=== PATIENT | female | born 1970 | race Caucasian/White ===

== ENCOUNTER → 2019-07-27 14:32 | Outpatient (BNVA) | payer MEDICARE, SELFPAY | PROVIDERS: Family Provider Family Medicine; PCP Student in an Organized Health Care Education/Training Program; Visit Provider Anesthesiology | DX: G62.9 Polyneuropathy, unspecified (principal); M79.672 Pain in left foot; G89.29 Other chronic pain; M47.27 Other spondylosis with radiculopathy, lumbosacral region; M47.817 Spondylosis without myelopathy or radiculopathy, lumbosacral region; M53.3 Sacrococcygeal disorders, not elsewhere classified; Z79.891 Long term (current) use of opiate analgesic | CPT/HCPCS: 99214 ==

== ENCOUNTER → 2019-09-19 13:52 | Outpatient (BNVA) | payer MEDICARE, SELFPAY | PROVIDERS: Family Provider Family Medicine; PCP Student in an Organized Health Care Education/Training Program; Visit Provider Anesthesiology | DX: Z76.89 Persons encountering health services in other specified circumstances (principal) | CPT/HCPCS: 99213 ==

== ENCOUNTER → 2019-10-02 08:44 | Outpatient (BNVA) | payer MEDICARE, SELFPAY | PROVIDERS: Family Provider Family Medicine; PCP Student in an Organized Health Care Education/Training Program; Visit Provider Nurse Practitioner Psychiatric/Mental Health | DX: F31.5 Bipolar disorder, current episode depressed, severe, with psychotic features (principal); F43.12 Post-traumatic stress disorder, chronic | CPT/HCPCS: 99214 ==

== ENCOUNTER → 2019-11-28 08:21 | Outpatient (BNVA) | payer MEDICARE, SELFPAY | PROVIDERS: Family Provider Family Medicine; PCP Family Medicine; Visit Provider Nurse Practitioner Psychiatric/Mental Health | DX: F31.5 Bipolar disorder, current episode depressed, severe, with psychotic features (principal); F43.12 Post-traumatic stress disorder, chronic; F17.210 Nicotine dependence, cigarettes, uncomplicated; F33.2 Major depressive disorder, recurrent severe without psychotic features | CPT/HCPCS: 99214 ==

== ENCOUNTER → 2019-12-07 13:21 | Outpatient (BNVA) | payer MEDICARE, SELFPAY | PROVIDERS: Family Provider Family Medicine; PCP Family Medicine; Visit Provider Anesthesiology | DX: G89.29 Other chronic pain (principal); M79.604 Pain in right leg; M79.605 Pain in left leg; M47.817 Spondylosis without myelopathy or radiculopathy, lumbosacral region; M47.27 Other spondylosis with radiculopathy, lumbosacral region; M53.3 Sacrococcygeal disorders, not elsewhere classified; M79.672 Pain in left foot; Z79.891 Long term (current) use of opiate analgesic | CPT/HCPCS: 99214 ==

== ENCOUNTER → 2020-02-15 13:13 | Outpatient (BNVA) | payer MEDICARE, SELFPAY | PROVIDERS: Family Provider Family Medicine; PCP Family Medicine; Visit Provider Anesthesiology | DX: M79.604 Pain in right leg (principal); M79.605 Pain in left leg; M79.672 Pain in left foot; M79.671 Pain in right foot; M47.27 Other spondylosis with radiculopathy, lumbosacral region; M47.817 Spondylosis without myelopathy or radiculopathy, lumbosacral region; E11.42 Type 2 diabetes mellitus with diabetic polyneuropathy; Z79.891 Long term (current) use of opiate analgesic | CPT/HCPCS: 99214 ==

== ENCOUNTER → 2020-02-27 08:24 | Outpatient (BNVA) | payer MEDICARE, SELFPAY | PROVIDERS: Family Provider Family Medicine; PCP Family Medicine; Visit Provider Nurse Practitioner Psychiatric/Mental Health | DX: F31.5 Bipolar disorder, current episode depressed, severe, with psychotic features (principal); F43.12 Post-traumatic stress disorder, chronic | CPT/HCPCS: 99214 ==

== ENCOUNTER → 2020-04-16 13:30 | Outpatient (BNVA) | payer MEDICARE, SELFPAY | PROVIDERS: Family Provider Family Medicine; PCP Family Medicine; Visit Provider Anesthesiology | DX: G89.29 Other chronic pain (principal); M47.27 Other spondylosis with radiculopathy, lumbosacral region; M47.817 Spondylosis without myelopathy or radiculopathy, lumbosacral region; M53.3 Sacrococcygeal disorders, not elsewhere classified; E11.42 Type 2 diabetes mellitus with diabetic polyneuropathy; Z99.3 Dependence on wheelchair; Z79.891 Long term (current) use of opiate analgesic | CPT/HCPCS: 99213; 99214 ==

== ENCOUNTER → 2020-04-24 08:49 | Outpatient (BNVA) | payer MEDICARE, SELFPAY | PROVIDERS: Family Provider Family Medicine; PCP Family Medicine; Visit Provider Anesthesiology | DX: G89.29 Other chronic pain (principal); M54.5 Low back pain; M53.3 Sacrococcygeal disorders, not elsewhere classified; M47.27 Other spondylosis with radiculopathy, lumbosacral region | CPT/HCPCS: 62323 ==

== ENCOUNTER → 2020-05-07 07:34 | Outpatient (BNVA) | payer MEDICARE, SELFPAY | PROVIDERS: Family Provider Family Medicine; PCP Family Medicine; Visit Provider Nurse Practitioner Psychiatric/Mental Health | DX: F31.5 Bipolar disorder, current episode depressed, severe, with psychotic features (principal); F43.12 Post-traumatic stress disorder, chronic | CPT/HCPCS: 99214 ==

== ENCOUNTER → 2020-05-28 08:12 | Outpatient (BNVA) | payer MEDICARE, SELFPAY | PROVIDERS: Family Provider Family Medicine; PCP Family Medicine; Visit Provider Nurse Practitioner Psychiatric/Mental Health | DX: F31.64 Bipolar disorder, current episode mixed, severe, with psychotic features (principal); F43.12 Post-traumatic stress disorder, chronic; F41.1 Generalized anxiety disorder | CPT/HCPCS: 99214 ==

== ENCOUNTER → 2020-06-10 13:27 | Outpatient (BNVA) | payer MEDICARE, SELFPAY | PROVIDERS: Family Provider Family Medicine; PCP Family Medicine; Visit Provider Nurse Practitioner | DX: G89.29 Other chronic pain (principal); M47.27 Other spondylosis with radiculopathy, lumbosacral region; M47.817 Spondylosis without myelopathy or radiculopathy, lumbosacral region; M79.672 Pain in left foot; G62.9 Polyneuropathy, unspecified; Z79.891 Long term (current) use of opiate analgesic | CPT/HCPCS: 99214 ==

== ENCOUNTER → 2020-06-11 08:20 | Outpatient (BNVA) | payer MEDICARE, SELFPAY | PROVIDERS: Family Provider Family Medicine; PCP Family Medicine; Visit Provider Nurse Practitioner Psychiatric/Mental Health | DX: F31.64 Bipolar disorder, current episode mixed, severe, with psychotic features (principal); F43.12 Post-traumatic stress disorder, chronic; F41.1 Generalized anxiety disorder | CPT/HCPCS: 99214 ==

== ENCOUNTER → 2020-07-11 13:20 | Outpatient (BNVA) | payer MEDICARE, SELFPAY | PROVIDERS: Family Provider Family Medicine; PCP Family Medicine; Visit Provider Nurse Practitioner | DX: G89.29 Other chronic pain (principal); M47.27 Other spondylosis with radiculopathy, lumbosacral region; M47.817 Spondylosis without myelopathy or radiculopathy, lumbosacral region; M53.3 Sacrococcygeal disorders, not elsewhere classified; M79.672 Pain in left foot; Z79.891 Long term (current) use of opiate analgesic | CPT/HCPCS: 99213; 99214 ==

== ENCOUNTER → 2020-08-06 13:28 | Outpatient (BNVA) | payer MEDICARE, SELFPAY | PROVIDERS: Family Provider Family Medicine; PCP Family Medicine; Visit Provider Nurse Practitioner Psychiatric/Mental Health | DX: F31.64 Bipolar disorder, current episode mixed, severe, with psychotic features (principal); F43.12 Post-traumatic stress disorder, chronic; F41.1 Generalized anxiety disorder | CPT/HCPCS: 99214 ==

== ENCOUNTER → 2020-08-28 14:26 | Outpatient (BNVA) | payer MEDICARE, SELFPAY | PROVIDERS: Family Provider Family Medicine; PCP Family Medicine; Visit Provider Nurse Practitioner Psychiatric/Mental Health | DX: F43.12 Post-traumatic stress disorder, chronic (principal); F41.1 Generalized anxiety disorder; F31.64 Bipolar disorder, current episode mixed, severe, with psychotic features; F03.90 Unspecified dementia, unspecified severity, without behavioral disturbance, psychotic disturbance, mood disturbance, and anxiety | CPT/HCPCS: 99214 ==

== ENCOUNTER → 2020-10-30 08:41 | Outpatient (BNVA) | payer MEDICARE, SELFPAY | PROVIDERS: Family Provider Family Medicine; PCP Family Medicine; Visit Provider Nurse Practitioner Psychiatric/Mental Health | DX: F31.64 Bipolar disorder, current episode mixed, severe, with psychotic features (principal); F43.12 Post-traumatic stress disorder, chronic; F41.1 Generalized anxiety disorder | CPT/HCPCS: 99214 ==

== ENCOUNTER → 2021-02-04 13:58 | Outpatient (BNVA) | payer MEDICARE, SELFPAY | PROVIDERS: Family Provider Family Medicine; PCP Family Medicine; Referring Provider Nurse Practitioner Psychiatric/Mental Health; Visit Provider Specialist | DX: G31.84 Mild cognitive impairment of uncertain or unknown etiology (principal); G43.711 Chronic migraine without aura, intractable, with status migrainosus; Z79.891 Long term (current) use of opiate analgesic; Z87.891 Personal history of nicotine dependence | CPT/HCPCS: 96116; 99205 ==

== ENCOUNTER → 2021-02-12 07:31 | Outpatient (BNVA) | payer MEDICARE, SELFPAY | PROVIDERS: Family Provider Family Medicine; PCP Family Medicine; Visit Provider Nurse Practitioner Psychiatric/Mental Health | DX: F31.64 Bipolar disorder, current episode mixed, severe, with psychotic features (principal); F43.12 Post-traumatic stress disorder, chronic; F41.1 Generalized anxiety disorder; Z79.899 Other long term (current) drug therapy | CPT/HCPCS: 99215 ==

== ENCOUNTER → 2021-03-09 07:29 | Outpatient (BNVA) | payer MEDICARE, SELFPAY | PROVIDERS: Family Provider Family Medicine; PCP Family Medicine; Visit Provider Nurse Practitioner Psychiatric/Mental Health | DX: F31.64 Bipolar disorder, current episode mixed, severe, with psychotic features (principal); F43.12 Post-traumatic stress disorder, chronic; F41.1 Generalized anxiety disorder | CPT/HCPCS: 99214 ==

== ENCOUNTER 2021-03-19 13:37 | Outpatient (CLI) | payer MEDICARE, SELFPAY ==
--- NOTE | 2021-03-19 13:45 | XR_ITS ---
WS: [id number] PA and lateral chest, 03/19/2021 Clinical Data: Shortness of breath Comparison: PA and lateral chest, 06/24/2015. Findings: No nodules, masses or effusions are seen. There are chronic interstitial changes throughout both lungs especially in the lower lobes and right upper lobe. The heart is normal. The aortic arch and descending thoracic aorta show calcification and tortuosity. There is a dextroscoliosis. No pneum onia or pneumothorax is seen. There are clips in the upper abdomen from a cholecystectomy. XR/XR chest 2V* [id number] Impression: 1. Bilateral chronic interstitial change in both lungs. 2. Atherosclerosis.
== END 2021-03-19 13:38 | disposition home or self-care (01) ==
LOC: RAD 13:42
PROVIDERS: PCP Family Medicine; Visit Provider Internal Medicine Critical Care Medicine
DX: R06.02 Shortness of breath (principal); I70.90 Unspecified atherosclerosis
CPT/HCPCS: 71046

== ENCOUNTER → 2021-03-30 08:32 | Outpatient (BNVA) | payer MEDICARE, SELFPAY | PROVIDERS: PCP Family Medicine; Visit Provider Nurse Practitioner Psychiatric/Mental Health | DX: F31.64 Bipolar disorder, current episode mixed, severe, with psychotic features (principal); F43.12 Post-traumatic stress disorder, chronic; F41.1 Generalized anxiety disorder | CPT/HCPCS: 99214 ==

== ENCOUNTER 2021-04-01 12:58 | Outpatient (CLI) | payer MEDICARE, SELFPAY ==
--- NOTE | 2021-04-01 13:15 | CT_ITS ---
WS: [id number] CT scan of the chest without IV contrast, additional two-dimensional coronal and sagittal reconstruct ion was performed. Additional axial supine inspiration and expiration imaging was performed. Prone im aging in the axial projection was done. 04/01/2021 Clinical Data: Pulmonary Nodule Comparison: CT chest, 10/01/2015. DLP: 980.[address] scans at [facility] use at least one of these dose optimization techniques: automated e xposure control; mA and/or kV adjustment per patient size (includes targeted exams where dose is matc hed to clinical indication); or iterative reconstruction. Findings: The upper lobes show bullous emphysema and chronic atelectatic changes especially in the right upper lobe. The lower lobes show atelectatic changes and there is a 1.7 cm pleural-based right lower lobe d ensity seen best on axial image 32 of 56. This density could be atelectasis or a pleural-based mass. With inspiration and expiration there is very little change in the size or excursion of the lungs. Th is indicates extensive air trapping. No effusions are seen. The heart size is normal with no pericardial effusion. There is coronary arter y calcification. The pulmonary arterial system and thoracic aorta demonstrate no dilatations. There i s minimal calcification of the wall of the thoracic aorta. There is no axillary or significant medias tinal adenopathy. There is calcified subcarinal adenopathy. The upper abdomen demonstrates clips in the gallbladder fossa from a cholecystectomy. CT/CT chest wo con [id number] Impression: 1. Severe bullous emphysema especially in the upper lobes. 2. Atelectatic changes throughout the lungs most notably in the right upper lob e. 3. Pleural-based density in the right lower lobe seen best on image 32/56 and r ecommend repeat CT chest in 3 months. 4. Inspiration and expiration CT scans demonstrate considerable air trapping wi th little change in size of the lungs.
== END 2021-04-01 12:59 | disposition home or self-care (01) ==
PROVIDERS: PCP Family Medicine; Visit Provider Internal Medicine Critical Care Medicine
DX: R91.1 Solitary pulmonary nodule (principal); J43.8 Other emphysema
CPT/HCPCS: 71250

== ENCOUNTER → 2021-05-04 15:10 | Outpatient (BNVA) | payer MEDICARE, SELFPAY | PROVIDERS: PCP Family Medicine; Visit Provider Specialist | DX: G43.711 Chronic migraine without aura, intractable, with status migrainosus (principal); G31.84 Mild cognitive impairment of uncertain or unknown etiology; Z87.891 Personal history of nicotine dependence | CPT/HCPCS: 96116; 99214 ==

== ENCOUNTER 2021-05-19 06:00 | Outpatient (RCR) | payer MEDICARE, SELFPAY | END 2021-05-26 23:59 | disposition home or self-care (01) | LOC: SPT 06:00 | PROVIDERS: PCP Family Medicine; Referring Provider Family Medicine; Visit Provider Family Medicine | DX: M25.512 Pain in left shoulder (principal); G89.29 Other chronic pain | CPT/HCPCS: 97110; 97162 ==

== ENCOUNTER → 2021-05-25 07:43 | Outpatient (BNVA) | payer MEDICARE, SELFPAY | PROVIDERS: PCP Family Medicine; Visit Provider Nurse Practitioner Psychiatric/Mental Health | DX: F31.64 Bipolar disorder, current episode mixed, severe, with psychotic features (principal); F43.12 Post-traumatic stress disorder, chronic; F41.1 Generalized anxiety disorder; G31.84 Mild cognitive impairment of uncertain or unknown etiology | CPT/HCPCS: 99214 ==

== ENCOUNTER 2021-05-27 06:00 | Outpatient (RCR) | payer MEDICARE, SELFPAY | END 2021-06-26 23:59 | disposition home or self-care (01) | LOC: SPT 06:00 | PROVIDERS: PCP Family Medicine; Visit Provider Family Medicine | DX: M25.512 Pain in left shoulder (principal); G89.29 Other chronic pain | CPT/HCPCS: 97110 ==

== ENCOUNTER 2021-06-22 15:30 | Emergency (ER) | payer MEDICARE, SELFPAY ==
[2021-06-22 15:38] VITALS: BP 125/73; PULSE 97; RESP 22; TEMP 37.5; O2SAT 92; BMI 25.7
[2021-06-22 16:06] VITALS: BP 125/73; PULSE 97; RESP 22; TEMP 37.5; O2SAT 92
[2021-06-22 16:18] LABS: Basophils # 0.1 10^3/uL (0.0-0.1); Basophils % 0.8 %; Eosinophils # 0.1 10^3/uL (0.0-0.8); Eosinophils % 1.2 %; Hematocrit 49.3 % (37.0-47.0); Hemoglobin 16.1 g/dL (11.5-15.3); Lymphocytes # 1.9 10^3/uL (0.8-4.8); Lymphocytes % 28.5 %; Mean Corpuscular HGB Conc 32.7 g/dL (30.0-36.0); Mean Corpuscular Hemoglobin 26.7 pg (28.0-34.0); Mean Corpuscular Volume 81.9 fl (81-99); Monocytes # 0.4 10^3/uL (0.2-0.9); Monocytes % 5.6 %; Neutrophils # 4.23 10^3/uL (1.8-7.7); Neutrophils % 63.6 %; Nucleated Red Blood Cells % 0 %; Platelet Count 201 10^3/cmm (130-400); Red Blood Count 6.02 10^6/uL (4.1-5.3); Red Cell Distribution Width 13.2 % (12.1-15.1); White Blood Count 6.6 10^3/uL (4.0-10.0)
[2021-06-22 16:40] LABS: Alanine Aminotransferase 9 U/L (0-33); Alkaline Phosphatase 81 IU/L (35-105); Anion Gap 14.7 (5-19); Aspartate Amino Transferase 10 U/L (0-32); Blood Urea Nitrogen 14 mg/dL (6-20); Calcium 8.6 mg/dL (8.5-10.5); Carbon Dioxide 26 mmol/L (22-29); Chloride 98 mmol/L (98-107); Globulin 3.3 g/dL (1.3-4.6); Glucose 484 mg/dL (65-115); Osmolality Calculated 300 mOsm/kg (285-295); Potassium 4.7 mmol/L (3.5-5.1); Sodium 134 mmol/L (136-145); Total Bilirubin 0.7 mg/dL (0.15-1.2); Total Protein 7.3 g/dL (6.6-8.7)
[2021-06-22 16:42] LABS: Acetaminophen < 5.0 ug/mL (10-30); Alcohol Level < 10 mg/dL (0-10); Salicylate < 0.3 mg/dL (3-10)
--- NOTE | 2021-06-22 17:05 | ED.C_ITS ---
HPI - Psych General: Chief Complaint: Psychiatric Symptoms Stated Complaint: MHE Time Seen by Provider: 06/22/21 15:52 History of Present Illness: HPI Narrative: 51-year-old female presents to the emergency room she is tearful on presentation. She denies any suicidal or homicidal behavior. She does admit in the past she has acted out in an attempt to get attention by threatening suicide this was several weeks ago she never advanced any lethality on that, and. She states she was just trying to get her to pay attention to her. She comes in today because she says she feels like she is going crazy . She relates a couple of instances where everyone agrees upon the facts of what it happened including her is at the bedside however they argue about the interpretation and how to deal with the problem. She interprets this as being told that she is wrong and is going crazy. She denies any suicidal homicidal ideation she denies any auditory or visual hallucinations. She is seeing a counselor at a local private office and has been pursuing some counseling with her through the christianity although she is frustrated because she feels like he does not participate and do what he is supposed to. complaint: feels depressed Onset (ago): minute(s) Duration: intermittent, changing over time and getting worse Relieving factors: none Exacerbating factors: none Associated symptoms: Deny auditory hallucinations, visual hallucinations, d elusions, depression, homicidal ideation, suicidal ideation or racing thoughts Treatments prior to arrival: none Review of Systems Const: Denies: fever(s), chills, body aches, change in appetite, fatigue or malaise ENMT: Denies: throat pain, ear or mastoid pain, nasal discharge or nasal congestion Card: Denies: chest pain, edema, dyspnea on exertion or orthopnea Resp: Denies: dyspnea, productive cough or non-productive cough GI: Denies: abdominal pain, nausea, vomiting, hematemesis, coffee ground emesis, diarrhea, constipation, bloating, hematochezia or melena : Denies: flank pain, difficulty voiding, dysuria, urinary frequency or urinary urgency Skin/Breast: Denies: rash or pruritus Psych: Denies: depression, visual hallucinations, auditory hallucinations, suicidal ideation or homicidal ideation PFS ED PFSH: Medical History Acute bilateral low back pain Apnea, sleep Bipolar I, most recent episode mixed, severe with psychotic behavior Chronic pain in left foot Chronic post-traumatic stress disorder Essential (primary) hypertension Facet joint disease of lumbosacral region Generalized anxiety disorder 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 Migraine, unspecified, not intractable, without status migrainosus Neuropathy Other spondylosis with radiculopathy, lumbosacral region Psychiatric care Type 2 diabetes mellitus with diabetic polyneuropathy Surgical History History of bilateral tubal ligation History of laparoscopic appendectomy Hx of cholecystectomy Hx of hysterectomy, total Family History Father CAD (coronary artery disease) Lung disease Bipolar 1 disorder Thyroid disorder Mother Diabetes Lung disease Social History Smoking and tobacco status: never smoked (1 pack a day) Quit status (tobacco): has quit using tobacco Year quit tobacco: 2011 - 2PPD x 40 Years Former quit date comment: Used non-minerva vape from 2011 - 2019 Alcohol intake: never Lives independently: Yes Household members: spouse Marital status: Current occupational status: disabled History of recent travel: No Current gender identity: Female Physical Exam Const: COMMON NORMALS: no acute distress GENERAL APPEARANCE: cooperative and comfortable ORIENTATION/CONSCIOUSNESS: Yes awake, Yes oriented to person, Yes oriented to place and Yes oriented to time HENMT: COMMON NORMALS: normocephalic, atraumatic and hearing grossly normal bilaterally HEAD & SCALP: normocephalic and atraumatic Neck/C-Spine: COMMON NORMALS: no JVD Resp: COMMON NORMALS: normal respiratory effort, No retractions, No use of accessory muscles and clear to auscultation bilaterally AUSCULTATION: clear to auscultation bilaterally Cardio: COMMON NORMALS: no JVD, regular rate, regular rhythm and No murmurs present (Cardio) RATE: regular rate RHYTHM: regular rhythm GI: COMMON NORMALS: Soft to palpation and No hepatosplenomegaly present AUSCULTATION: Yes normoactive bowel sounds PALPATION: Yes Soft to palpation, No Tenderness to palpation present (GI), No Guarding due to palpation present (GI) and Yes No hepatosplenomegaly present Extremity: COMMON NORMALS: normal to inspection, capillary refill normal, no clubbing, cyanosis or edema, no calf tenderness and no pedal edema Neuro: SENSORIUM/ORIENTATION: Yes oriented to person, Yes oriented to place and Yes oriented to time Psych: THOUGHT CONTENT: No delusions Skin: COMMON NORMALS: no rashes or lesions noted GENERAL SKIN EXAM: no rashes or lesions noted Course Vital Signs: Vital signs: Vital Signs Temperature 99.5 F 06/22/21 16:06 Pulse Rate 97 06/22/21 16:06 Respiratory Rate 22 H 06/22/21 16:06 Blood Pressure 125/73 06/22/21 16:06 Pulse Oximetry 92 06/22/21 16:06 MDM - Psych MDM Narrative: Medical decision making narrative: Long discussion with the patient and her . Essentially she has an adjustment disorder with some depression. At this point she is not acutely psychotic she does not have any suicidal homicidal complaints. She does have the ability to remove herself from the situation her is actually at the bedside and is willing to assist her and then as he is can bring her to a family member's home just so they can have some time apart. Recommended she continue the counseling. She repeatedly denies any suicidal or homicidal ideation. Lab Data: Labs: Lab Results 06/22/21 06/22/21 16:04 16:04 WBC 6.6 10^3/uL 10^3/ uL (4.0-10.0) RBC 6.02 10^6/uL H 10 ^6/uL (4.1-5.3) Hgb 16.1 g/dL H g/dL (11.5-15.3) Hct 49.3 % H % (37.0-47.0) MCV 81.9 fl fl (81-99) MCH 26.7 pg L pg (28.0-34.0) MCHC 32.7 g/dL g/dL (30.0-36.0) RDW 13.2 % % (12.1-15.1) Plt Count 201 10^3/cmm 10^3 /cmm (130-400) MPV 11.0 fL H fL (7.4-10.4) Neut % (Auto) 63.6 % % Lymph % (Auto) 28.5 % % [place] % (Auto) 5.6 % % Eos % (Auto) 1.2 % % Baso % (Auto) 0.8 % % Neut # (Auto) 4.23 10^3/uL 10^3 /uL (1.8-7.7) Lymph # (Auto) 1.9 10^3/uL 10^3/ uL (0.8-4.8) [place] # (Auto) 0.4 10^3/uL 10^3/ uL (0.2-0.9) Eos # (Auto) 0.1 10^3/uL 10^3/ uL (0.0-0.8) Baso # (Auto) 0.1 10^3/uL 10^3/ uL (0.0-0.1) Nucleated RBC % (a uto) 0 % % Nucleated RBCs # 0.0 /100WBC /100W BC Sodium 134 mmol/L L mmol /L (136-145) Potassium 4.7 mmol/L mmol/L (3.5-5.1) Chloride 98 mmol/L mmol/L (98-107) Carbon Dioxide 26 mmol/L mmol/L (22-29) Anion Gap 14.7 (5-19) BUN 14 mg/dL mg/dL (6-20) Creatinine 0.8 mg/dL mg/dL (0.5-0.9) GFR Calculation 75.0 mL/min L mL/ min (90-130) Glucose 484 mg/dL H mg/dL (65-115) Calculated Osmolal ity 300 mOsm/kg H mOs m/kg (285-295) Calcium 8.6 mg/dL mg/dL (8.5-10.5) Total Bilirubin 0.7 mg/dL mg/dL (0.15-1.2) AST 10 U/L U/L (0-32) ALT 9 U/L U/L (0-33) Alkaline Phosphata se 81 IU/L IU/L (35-105) Total Protein 7.3 g/dL g/dL (6.6-8.7) Albumin 4.0 g/dL g/dL (3.5-5.2) Globulin 3.3 g/dL g/dL (1.3-4.6) Salicylates < 0.3 mg/dL L mg/ dL (3-10) Acetaminophen < 5.0 ug/mL L ug/ mL (10-30) Ethyl Alcohol < 10 mg/dL mg/dL (0-10) Discharge Plan Discharge Patient Disposition: Home Clinical Impression: Adjustment disorder Condition: Stable Prescriptions: No Action cholecalciferol (vitamin D3) 50 mcg (2,000 unit) capsule 50 mcg PO DAILY RF: 0 alpha lipoic acid 200 mg capsule 200 mg PO TID RF: 0 vitamin B complex [B Complex-Vitamin B12] Tablet 1 tab PO DAILY RF: 0 sumatriptan succinate 25 mg tablet See Rx Instructions PO .COMPLEX RF: 0 oxycodone 20 mg tablet 20 mg PO Q6H PRN (Reason: pain) RF: 0 oxycodone 20 mg tablet 20 mg PO Q6H PRN (Reason: pain) RF: 0 omeprazole 20 mg tablet,delayed release (DR/EC) 20 mg PO BID Qty: 60 RF: 3 pregabalin [Lyrica] 300 mg capsule 300 mg PO QDAY 30 Days Qty: 30 RF: 1 promethazine 12.5 mg tablet 12.5 mg PO Q6H PRN (Reason: nausea and vomiting) Qty: 120 RF: 2 quetiapine [Seroquel XR] 300 mg tablet extended release 24 hr 300 mg PO DAILY Qty: 30 RF: 3 melatonin 3 mg tablet 3 mg PO DIRECTED PRN (Reason: sleep) Qty: 30 RF: 3 [place] 6 mg tablet 6 mg PO BID Qty: 60 RF: 4 diazepam [Valium] 5 mg tablet 5 mg PO DIRECTED PRN (Reason: anxiety) Qty: 60 RF: 2 albuterol sulfate 5 mg/mL solution for nebulization 5 mg INHALATION TID PRNRF: 0 pravastatin 40 mg tablet 40 mg PO .Q HS RF: 0 polyethylene glycol 3350 [Miralax] 17 gram/dose powder 17 gm PO QDAY PRN (Reason: constipation) RF: 0 metoprolol tartrate 100 mg tablet 100 mg PO QDAY RF: 0 albuterol sulfate inhalation RF: 0 CBD OILS as directed TID RF: 0 Tresiba FlexTouch U-100 100 unit/mL (3 mL) insulin pen 30 unit SUBCUT .QHS RF: 0 ondansetron 4 mg tablet,disintegrating 4 mg PO Q8H RF: 0 Ajovy Autoinjector 225 mg/1.5 mL auto-injector SUBCUT RF: 0 galantamine 4 mg tablet 4 mg PO BID Qty: 60 RF: 3 diclofenac sodium-menthol 1.5-10 % combo pack topical QID RF: 0 mjdiwxsbuux-hsmfhriou-fodaqlrl [Trelegy Ellipta] 100-62.5-25 mcg blister with device See Rx Instructions .ROUTE .COMPLEX Qty: 60 RF: 6 dronabinol 10 mg capsule 10 mg PO DAILY 30 Days Qty: 30 RF: 3 dronabinol 10 mg capsule 10 mg PO BID 30 Days Qty: 60 RF: 1 Ajovy Autoinjector 225 mg/1.5 mL auto-injector See Rx Instructions .ROUTE .COMPLEX Qty: 1.5 RF: 2 Discharge Orders: Discharge ED (Routine); Ordered 06/22/21 Ordered By: Shan Benavides Referrals: Uzma Oleary DO [Primary Care Provider] - Patient Instructions: Opioid Safety Coding Level of Care Code ED Strap Cutting Machine Operator for Prema Magana
== END 2021-06-22 17:24 | disposition home or self-care (01) ==
PROVIDERS: Physician Assistant; Emergency Provider Family Medicine; PCP Family Medicine
DX: F43.20 Adjustment disorder, unspecified (principal); Z79.4 Long term (current) use of insulin; I10 Essential (primary) hypertension; E11.42 Type 2 diabetes mellitus with diabetic polyneuropathy; Z87.891 Personal history of nicotine dependence
CPT/HCPCS: 80053; 80307; 85025; 99283

== ENCOUNTER → 2021-06-30 07:45 | Outpatient (BNVA) | payer MEDICARE, SELFPAY | PROVIDERS: PCP Family Medicine; Visit Provider Nurse Practitioner Psychiatric/Mental Health | DX: F31.64 Bipolar disorder, current episode mixed, severe, with psychotic features (principal); F43.12 Post-traumatic stress disorder, chronic; F41.1 Generalized anxiety disorder; G31.84 Mild cognitive impairment of uncertain or unknown etiology | CPT/HCPCS: 99214 ==

== ENCOUNTER → 2021-07-23 08:11 | Outpatient (BNVA) | payer MEDICARE, SELFPAY | PROVIDERS: PCP Family Medicine; Visit Provider Nurse Practitioner Psychiatric/Mental Health | DX: F31.64 Bipolar disorder, current episode mixed, severe, with psychotic features (principal); F43.12 Post-traumatic stress disorder, chronic; F41.1 Generalized anxiety disorder; G31.84 Mild cognitive impairment of uncertain or unknown etiology | CPT/HCPCS: 99214 ==

== ENCOUNTER → 2021-07-27 15:31 | Outpatient (BNVA) | payer MEDICARE, SELFPAY | PROVIDERS: PCP Family Medicine; Referring Provider Nurse Practitioner Family; Visit Provider Specialist | DX: G56.21 Lesion of ulnar nerve, right upper limb (principal); Z87.891 Personal history of nicotine dependence | CPT/HCPCS: 95908 ==

== ENCOUNTER → 2021-08-05 13:42 | Outpatient (BNVA) | payer MEDICARE, SELFPAY | PROVIDERS: PCP Family Medicine; Visit Provider Specialist | DX: G43.709 Chronic migraine without aura, not intractable, without status migrainosus (principal); G56.21 Lesion of ulnar nerve, right upper limb; G31.84 Mild cognitive impairment of uncertain or unknown etiology; E11.42 Type 2 diabetes mellitus with diabetic polyneuropathy; Z79.4 Long term (current) use of insulin; Z87.891 Personal history of nicotine dependence; Z79.891 Long term (current) use of opiate analgesic | CPT/HCPCS: 99214 ==

== ENCOUNTER 2021-08-06 06:00 | Outpatient (RCR) | payer MEDICARE, SELFPAY | END 2021-08-24 23:59 | disposition home or self-care (01) | LOC: SOT 06:00 | PROVIDERS: PCP Family Medicine; Referring Provider Nurse Practitioner Family; Visit Provider Nurse Practitioner Family | DX: G56.01 Carpal tunnel syndrome, right upper limb (principal) | CPT/HCPCS: 97032; 97110; 97140; 97165 ==

== ENCOUNTER 2021-08-25 06:00 | Outpatient (RCR) | payer MEDICARE, SELFPAY | END 2021-09-24 23:59 | disposition home or self-care (01) | LOC: SOT 06:00 | PROVIDERS: PCP Family Medicine; Referring Provider Nurse Practitioner Family; Visit Provider Nurse Practitioner Family | DX: G56.01 Carpal tunnel syndrome, right upper limb (principal) | CPT/HCPCS: 97110; 97140; 97165 ==

== ENCOUNTER → 2021-09-24 10:44 | Outpatient (BNVA) | payer MEDICARE, SELFPAY | PROVIDERS: PCP Family Medicine; Visit Provider Nurse Practitioner Psychiatric/Mental Health | DX: F31.64 Bipolar disorder, current episode mixed, severe, with psychotic features (principal); F43.12 Post-traumatic stress disorder, chronic; F41.1 Generalized anxiety disorder; G31.84 Mild cognitive impairment of uncertain or unknown etiology | CPT/HCPCS: 99214 ==

== ENCOUNTER → 2021-10-09 10:47 | Outpatient (BNVA) | payer MEDICARE, SELFPAY | PROVIDERS: PCP Family Medicine; Visit Provider Internal Medicine Critical Care Medicine | DX: J44.9 Chronic obstructive pulmonary disease, unspecified (principal); G47.30 Sleep apnea, unspecified; J96.11 Chronic respiratory failure with hypoxia; R91.1 Solitary pulmonary nodule; R12 Heartburn; G47.33 Obstructive sleep apnea (adult) (pediatric); Z87.891 Personal history of nicotine dependence | CPT/HCPCS: 99214 ==

== ENCOUNTER 2021-10-14 15:51 | Emergency (ER) | payer MEDICARE, SELFPAY ==
--- NOTE | 2021-10-14 15:55 | W.ED.SOB ---
HPI - SOB/Dyspnea General: Chief Complaint: Shortness of Breath/Dyspnea Stated Complaint: DIFFICULTY BREATHING/ POSSIBLE ALLERGIC RX Time Seen by Provider: 10/14/21 15:55 Source: patient and family Mode of arrival: ambulatory Limitations: no limitations History of Present Illness: HPI Narrative: 51-year-old female brought to the emergency [facility] in the [facility]. She has had some medication changes lately and she feels like she is getting side effects from some of her medicines. She has been told she has tardive dyskinesia in the past.Patient has some baseline confusion she is reported as being combative but was not combative on arrival here he also said she was short of breath there is no hypoxia patient is normally on 3 L of oxygen and is satting 94 to 95% on. MD elicited complaint: shortness of breath Pertinent past history: COPD Onset (ago): minute(s) Context: choking/aspiration Timing: now resolved Severity: mild Exacerbating factors: nothing Relieving factors: nothing Associated symptoms: Deny abdominal pain, chest congestion, chest pain, cough, diaphoresis, dizziness, extremity pain, fever(s), hemoptysis, lightheadedness, myalgias, nausea, orthopnea, palpitations, paresthesias, polydipsia, polyuria, rash, sense of impending doom, syncope or vomiting Treatment prior to arrival: oxygen Review of Systems General: Reports: Other (Family member assist) Const: Denies: fever(s) or diaphoresis ENMT: Denies: throat pain, ear or mastoid pain, nasal discharge or nasal congestion Card: Denies: chest pain, palpitations, lightheadedness, syncope or orthopnea Resp: Denies: hemoptysis or chest congestion GI: Denies: abdominal pain, nausea or vomiting : Denies: flank pain, difficulty voiding, dysuria, urinary frequency or urinary urgency Musc: Denies: extremity pain Skin/Breast: Denies: rash or pruritus Neuro: Denies: dizziness Endo: Denies: polyuria or polydipsia PFS ED PFSH: Medical History Acute bilateral low back pain Apnea, sleep Bipolar I, most recent episode mixed, severe with psychotic behavior Chronic pain in left foot Chronic post-traumatic stress disorder Essential (primary) hypertension Facet joint disease of lumbosacral region Generalized anxiety disorder longterm (current) use of opiate analgesic Migraine, unspecified, not intractable, without status migrainosus Neuropathy Other spondylosis with radiculopathy, lumbosacral region Psychiatric care Type 2 diabetes mellitus with diabetic polyneuropathy Surgical History History of bilateral tubal ligation History of laparoscopic appendectomy Hx of cholecystectomy Hx of hysterectomy, total Family History Father CAD (coronary artery disease) Lung disease Bipolar 1 disorder Thyroid disorder Mother Diabetes Lung disease Social History Smoking and tobacco status: former smoker Quit status (tobacco): has quit using tobacco Year quit tobacco: 2011 - 2PPD x 40 Years Former quit date comment: Used non-minerva vape from 2011 - 2019 Alcohol intake: never Lives independently: Yes Household members: spouse Marital status: Current occupational status: disabled History of recent travel: No Current gender identity: Female Physical Exam Const: COMMON NORMALS: no acute distress GENERAL APPEARANCE: cooperative and comfortable ORIENTATION/CONSCIOUSNESS: Yes awake HENMT: COMMON NORMALS: normocephalic, atraumatic and hearing grossly normal bilaterally HEAD & SCALP: normocephalic and atraumatic Neck/C-Spine: COMMON NORMALS: no JVD Resp: COMMON NORMALS: normal respiratory effort, No retractions, No use of accessory muscles and clear to auscultation bilaterally AUSCULTATION: clear to auscultation bilaterally Cardio: COMMON NORMALS: no JVD, regular rate, regular rhythm and No murmurs present (Cardio) RATE: regular rate RHYTHM: regular rhythm GI: COMMON NORMALS: Soft to palpation and No hepatosplenomegaly present AUSCULTATION: Yes normoactive bowel sounds PALPATION: Yes Soft to palpation, No Tenderness to palpation present (GI), No Guarding due to palpation present (GI) and Yes No hepatosplenomegaly present Extremity: COMMON NORMALS: normal to inspection, capillary refill normal, no clubbing, cyanosis or edema, no calf tenderness and no pedal edema Skin: COMMON NORMALS: no rashes or lesions noted GENERAL SKIN EXAM: no rashes or lesions noted Course Vital Signs: Vital signs: Vital Signs Temperature 99.1 F 10/14/21 16:19 Pulse Rate 64 10/14/21 17:42 Respiratory Rate 18 10/14/21 16:19 Blood Pressure 103/61 10/14/21 17:42 Pulse Oximetry 95 10/14/21 17:42 MDM - SOB/Dyspnea Medical Decision Making Patient and her associate the symptoms with taking Ingrezza. All encourage have her stop it for now follow-up with her primary care doctor otherwise she is doing well at this point. On vital sign at the time of discharge she is listed as being at 12 L on a nonrebreather however when I seen the patient she was at 3 L on nonrebreather with no respiratory distress believe that was error in documentation. The time that I discharge her she was still only on her 3 L by nasal cannula. Medical Records I reviewed the patient's medical records. Lab Data I reviewed the patient's lab results. : 10/14/21 15:19 10/14/21 15:19 Labs/Radiology: Radiology Impressions Chest X-Ray 10/14/21 16:05 IMPRESSION: No acute findings. Laboratory Results WBC 6.5 10^3/uL (4.0-10.0) 10/14/21 15:19 RBC 6.24 10^6/uL (4.1-5.3) H 10/14/21 15:19 Hgb 15.1 g/dL (11.5-15.3) 10/14/21 15:19 Hct 47.6 % (37.0-47.0) H 10/14/21 15:19 MCV 76.3 fl (81-99) L 10/14/21 15:19 MCH 24.2 pg (28.0-34.0) L 10/14/21 15:19 MCHC 31.7 g/dL (30.0-36.0) 10/14/21 15:19 RDW 14.2 % (12.1-15.1) 10/14/21 15:19 Plt Count 184 10^3/cmm (130-400) 10/14/21 15:19 MPV 11.2 fL (7.4-10.4) H 10/14/21 15:19 Neut % (Auto) 68.8 % 10/14/21 15:19 Lymph % (Auto) 22.8 % 10/14/21 15:19 [place] % (Auto) 6.2 % 10/14/21 15:19 Eos % (Auto) 1.4 % 10/14/21 15:19 Baso % (Auto) 0.6 % 10/14/21 15:19 Neut # (Auto) 4.45 10^3/uL (1.8-7.7) 10/14/21 15:19 Lymph # (Auto) 1.5 10^3/uL (0.8-4.8) 10/14/21 15:19 [place] # (Auto) 0.4 10^3/uL (0.2-0.9) 10/14/21 15:19 Eos # (Auto) 0.1 10^3/uL (0.0-0.8) 10/14/21 15:19 Baso # (Auto) 0.0 10^3/uL (0.0-0.1) 10/14/21 15:19 Nucleated RBC % (auto) 0 % 10/14/21 15:19 Nucleated RBCs # 0.0 /100WBC 10/14/21 15:19 Specimen Type Arterial 10/14/21 16:02 Sample Site Radial, right 10/14/21 16:02 ABG pH 7.40 (7.35-7.45) 10/14/21 16:02 ABG pCO2 49.1 mmHg (35-45) H 10/14/21 16:02 ABG pO2 63.2 mmHg (80.0-100.0) L 10/14/21 16:02 ABG HCO3 30.5 mmol/L (22-26) H 10/14/21 16:02 ABG O2 Saturation 92.3 10/14/21 16:02 ABG Base Excess 4.6 mmol/L (-2.0-2.0) H 10/14/21 16:02 Yusuf Test Pos 10/14/21 16:02 A-a O2 Gradient 13.5 mmHg (5-10) H 10/14/21 16:02 Hematocrit 45.0 % (37-47) 10/14/21 16:02 Hgb O2 Saturation 90.2 % (95-100) L 10/14/21 16:02 Carboxyhemoglobin 1.5 %THgb (0.4-20.1) 10/14/21 16:02 Methemoglobin 0.7 % (0.4-1.5) 10/14/21 16:02 Total Hemoglobin 14.7 g/dL (12-16) 10/14/21 16:02 Sodium 142.0 mmol/L (131-143) 10/14/21 16:02 Potassium 4.2 mmol/L (3.5-5.0) 10/14/21 16:02 Glucose 183.0 mg/dL (70-115) H 10/14/21 16:02 Ionized Calcium 1.2 mmol/L (1.1-1.4) 10/14/21 16:02 O2 Delivery Device Nc 10/14/21 16:02 O2 Liters/Min 3.0 % 10/14/21 16:02 FiO2 32.0 % 10/14/21 16:02 Pipeline Gang Supervisor ID Anonymous 10/14/21 16:02 Sodium 139 mmol/L (136-145) 10/14/21 15:19 Potassium 3.9 mmol/L (3.5-5.1) 10/14/21 15:19 Chloride 99 mmol/L (98-107) 10/14/21 15:19 Carbon Dioxide 29 mmol/L (22-29) 10/14/21 15:19 Anion Gap 14.9 (5-19) 10/14/21 15:19 BUN 10 mg/dL (6-20) 10/14/21 15:19 Creatinine 0.6 mg/dL (0.5-0.9) 10/14/21 15:19 GFR Calculation 104.6 mL/min (90-130) 10/14/21 15:19 Glucose 184 mg/dL (65-115) H 10/14/21 15:19 Calculated Osmolality 292 mOsm/kg (285-295) 10/14/21 15:19 Calcium 9.5 mg/dL (8.5-10.5) 10/14/21 15:19 Total Bilirubin 0.6 mg/dL (0.15-1.2) 10/14/21 15:19 AST 12 U/L (0-32) 10/14/21 15:19 ALT 11 U/L (0-33) 10/14/21 15:19 Alkaline Phosphatase 72 IU/L (35-105) 10/14/21 15:19 Total Protein 7.4 g/dL (6.6-8.7) 10/14/21 15:19 Albumin 4.2 g/dL (3.5-5.2) 10/14/21 15:19 Globulin 3.2 g/dL (1.3-4.6) 10/14/21 15:19 Discharge Plan Discharge Patient Disposition: Home Clinical Impression: Tardive dyskinesia, Medication side effects Condition: Stable Prescriptions: Held Ingrezza 40 mg capsule 40 mg PO DAILY 0RF Hold Instructions: Resume on 10/21/21. No Action sumatriptan succinate 25 mg tablet See Rx Instructions PO .COMPLEX 0RF Rx Instructions: take 1 tab at onset of headache; if no relief may repeat 1 tab after at least 2 hrs; max = 4 tabs/24 hr PO omeprazole 20 mg tablet,delayed release (DR/EC) 20 mg PO BID Qty: 60 3RF pregabalin [Lyrica] 300 mg capsule 300 mg PO QDAY 30 Days Qty: 30 1RF promethazine 12.5 mg tablet 12.5 mg PO Q6H PRN (Reason: nausea and vomiting) Qty: 120 2RF Rx Instructions: Take one tablet every six hours as needed for nausea/vomiting melatonin 3 mg tablet 3 mg PO DIRECTED PRN (Reason: sleep) Qty: 30 3RF Rx Instructions: Take one tablet 30-60 min prior to bedtime as needed for sleep galantamine 8 mg tablet 8 mg PO BID Qty: 60 5RF Rx Instructions: administer with AM and PM meals Ajovy Autoinjector 225 mg/1.5 mL auto-injector See Rx Instructions .ROUTE .COMPLEX Qty: 1.5 5RF Dose Instruction: inject 225mg(1.5ML) SUBCUTANEOUSLY ONCE Rx Instructions: inject 225mg(1.5ML) SUBCUTANEOUSLY ONCE albuterol sulfate 5 mg/mL solution for nebulization 5 mg INHALATION TID PRN0RF pravastatin 40 mg tablet 40 mg PO .Q HS 0RF metoprolol tartrate 100 mg tablet 100 mg PO QDAY 0RF albuterol sulfate inhalation 0RF CBD OILS as directed TID 0RF Tresiba FlexTouch U-100 100 unit/mL (3 mL) insulin pen 30 unit SUBCUT .QHS 0RF Ajovy Autoinjector 225 mg/1.5 mL auto-injector SUBCUT 0RF diclofenac sodium-menthol 1.5-10 % combo pack topical QID 0RF galantamine 4 mg tablet 4 mg PO BID 0RF Rx Instructions: administer with AM and PM meals oxycodone 15 mg tablet 15 mg PO Q6H PRN0RF Tresiba FlexTouch U-100 100 unit/mL (3 mL) insulin pen 20 unit SUBCUT DAILY 0RF Baqsimi 3 mg/actuation spray,non-aerosol intranasal 0RF bgwokdgqadv-apmcsszcc-bsglpron [Trelegy Ellipta] 100-62.5-25 mcg blister with device See Rx Instructions .ROUTE .COMPLEX Qty: 60 6RF Dose Instruction: INHALE 1 PUFF BY MOUTH EVERY DAY Rx Instructions: INHALE 1 PUFF BY MOUTH EVERY DAY dronabinol 10 mg capsule 10 mg PO BID 30 Days Qty: 60 1RF Rx Instructions: Fill on or after 07/18/20 and 08/16/20 paliperidone [Invega] 1.5 mg tablet extended release 24hr 1.5 mg PO BEDTIME Qty: 30 2RF Rx Instructions: Take one tablet at bedtime diazepam [Valium] 5 mg tablet 5 mg PO DIRECTED PRN (Reason: anxiety) Qty: 60 2RF Rx Instructions: Take half tab in morning, half tab in afternoon, and one tab in evening as needed for anxiety Discharge Orders: Discharge ED (Routine); Ordered 10/14/21 Ordered By: Shan Benavides Referrals: Uzma Oleary, [Primary Care Provider] - Discharge Diet: Usual diet Discharge Activity: Resume usual activity Patient Instructions: Opioid Safety Activity Restrictions/Additional Instructions: Hold Ingrezza until you follow-up with your primary doctor. Coding Level of Care Code ED Road Roller Engineer for Prema Magana
[2021-10-14 15:56] VITALS: BP 126/65; PULSE 60; RESP 16; TEMP 36.6; O2SAT 94; BMI 25.8
[2021-10-14 16:05] VITALS: BP 126/65; PULSE 60; RESP 16; O2SAT 94
--- NOTE | 2021-10-14 16:05 | XRR_ITS ---
PROCEDURE INFORMATION: Exam: XR Chest Exam date and time: 10/14/2021 4:10 PM Age: 51 years old Clinical indication: Cough and dyspnea; Patient HX: History-- shortness of breath off an on since starting a new medication for bipolar 2 disorder, worse today; Additional info: Dyspnea/cough TECHNIQUE: Imaging protocol: XR of the chest. Views: 1 view. COMPARISON: CT chest con [id number] 04/01/2021 1:08 PM FINDINGS: Lungs: Emphysematous changes of the lungs with scattered scarring. No consolidation. Pleural spaces: Unremarkable. No pleural effusion. No pneumothorax. Heart/Mediastinum: Unremarkable. No cardiomegaly. Bones/joints: Unremarkable. XR/XR chest 1V portable [id number] IMPRESSION: No acute findings.
[2021-10-14 16:12] LABS: ABG PCO2 49.1 mmHg (35-45); Base Excess ABG 4.6 mmol/L (-2.0-2.0); Blood Gas Allen Test Pos; Blood Gas Operator Identificat Anonymous; Blood Gas Sample Type Arterial; Carboxyhemoglobin 1.5 %THgb (0.4-20.1); HCO3 ABG 30.5 mmol/L (22-26); HGB O2 Sat 90.2 % (95-100); Ionized Calcium Level - ABG 1.2 mmol/L (1.1-1.4); Methemoglobin 0.7 % (0.4-1.5); Oxygen Saturation ABG 92.3; PO2 ABG 63.2 mmHg (80.0-100.0); Potassium Level - ABG 4.2 mmol/L (3.5-5.0); Total Hemoglobin 14.7 g/dL (12-16)
[2021-10-14 16:13] LABS: Alveolar-Arterial Oxygen Gradi 13.5 mmHg (5-10); Blood Gas Sample Site Radial, right; Oxygen Device NC
[2021-10-14 16:17] LABS: Basophils % 0.6 %; Eosinophils # 0.1 10^3/uL (0.0-0.8); Eosinophils % 1.4 %; Hematocrit 47.6 % (37.0-47.0); Hemoglobin 15.1 g/dL (11.5-15.3); Lymphocytes # 1.5 10^3/uL (0.8-4.8); Lymphocytes % 22.8 %; Mean Corpuscular HGB Conc 31.7 g/dL (30.0-36.0); Mean Corpuscular Hemoglobin 24.2 pg (28.0-34.0); Mean Corpuscular Volume 76.3 fl (81-99); Mean Platelet Volume 11.2 fL (7.4-10.4); Monocytes # 0.4 10^3/uL (0.2-0.9); Monocytes % 6.2 %; Neutrophils # 4.45 10^3/uL (1.8-7.7); Neutrophils % 68.8 %; Nucleated Red Blood Cells % 0 %; Platelet Count 184 10^3/cmm (130-400); Red Blood Count 6.24 10^6/uL (4.1-5.3); Red Cell Distribution Width 14.2 % (12.1-15.1); White Blood Count 6.5 10^3/uL (4.0-10.0)
[2021-10-14 16:19] VITALS: BP 139/105; PULSE 147; RESP 18; TEMP 37.3; O2SAT 91; BMI 16.9
[2021-10-14 16:34] LABS: Alanine Aminotransferase 11 U/L (0-33); Albumin Level 4.2 g/dL (3.5-5.2); Alkaline Phosphatase 72 IU/L (35-105); Anion Gap 14.9 (5-19); Aspartate Amino Transferase 12 U/L (0-32); Blood Urea Nitrogen 10 mg/dL (6-20); Calcium 9.5 mg/dL (8.5-10.5); Carbon Dioxide 29 mmol/L (22-29); Chloride 99 mmol/L (98-107); Globulin 3.2 g/dL (1.3-4.6); Glomerular Filtration Rate 104.6 mL/min (90-130); Glucose 184 mg/dL (65-115); Osmolality Calculated 292 mOsm/kg (285-295); Potassium 3.9 mmol/L (3.5-5.1); Sodium 139 mmol/L (136-145); Total Bilirubin 0.6 mg/dL (0.15-1.2); Total Protein 7.4 g/dL (6.6-8.7)
[2021-10-14 17:42] VITALS: BP 103/61; PULSE 64; O2SAT 95
== END 2021-10-14 17:44 | disposition home or self-care (01) ==
PROVIDERS: Emergency Provider Family Medicine; PCP Family Medicine
DX: G24.01 Drug induced subacute dyskinesia (principal); T50.995A Adverse effect of other drugs, medicaments and biological substances, initial encounter; Y92.9 Unspecified place or not applicable; I10 Essential (primary) hypertension; Z79.899 Other long term (current) drug therapy; J44.9 Chronic obstructive pulmonary disease, unspecified
CPT/HCPCS: 36600; 71045; 80051; 80053; 82330; 82805; 85025; 99283

== ENCOUNTER 2021-10-23 18:08 | Emergency (ER) | payer MEDICARE, SELFPAY ==
[2021-10-23 18:13] VITALS: BP 119/72; PULSE 60; RESP 18; TEMP 37.2; O2SAT 94; BMI 26.4
--- NOTE | 2021-10-23 18:33 | ECG_ITS ---
[facility] Test Date: 2021-10-23 Pat Name: Lissa Desai Department: Room: Gender: Female Director Of Business Services: : 1970 Requested By: Alan Batres Order Number: [id number] Stephenie MD: Sallie Montiel M.D. Measurements Intervals Divide Rate: 58 P: 55 OH: 213 QRS: -7 QRSD: 79 T: 61 QT: 431 QTc: 426 Interpretive Statements SINUS BRADYCARDIA WITH FIRST DEGREE AV BLOCK LOW QRS VOLTAGE IN PRECORDIAL LEADS [QRS DEFLECTION < 1.0 mV IN CHEST LEADS] Compared to ECG 06/15/2015 22:22:41 First degree AV block now present Low QRS voltage now present Sinus tachycardia no longer present Electronically Signed On 10-23-2021 20:05:40 CDT by Sallie Montiel M.D. [id number]
--- NOTE | 2021-10-23 18:33 | XRR_ITS ---
PROCEDURE INFORMATION: Exam: XR Chest Exam date and time: 10/23/2021 6:41 PM Age: 51 years old Clinical indication: Shortness of breath; Additional info: SOB TECHNIQUE: Imaging protocol: XR of the chest. Views: 1 view. COMPARISON: CR XR chest 1V portable [id number] 10/14/2021 4:10 PM FINDINGS: Lungs: Coarse reticular interstitial lung change. Emphysematous lung changes. No definite consolidation. Pleural spaces: Unremarkable. No pleural effusion. No pneumothorax. Heart/Mediastinum: Unremarkable. No cardiomegaly. Bones/joints: Unremarkable. XR/XR chest 1V portable [id number] IMPRESSION: 1. Background interstitial lung disease. 2. No change from prior. 3. No definite acute pulmonary consolidation.
[2021-10-23 18:46] VITALS: BP 91/57; PULSE 63; RESP 18; O2SAT 95
[2021-10-23 18:58] LABS: Basophils # 0.1 10^3/uL (0.0-0.1); Basophils % 0.8 %; Eosinophils # 0.1 10^3/uL (0.0-0.8); Eosinophils % 1.9 %; Hemoglobin 14.4 g/dL (11.5-15.3); Lymphocytes # 1.8 10^3/uL (0.8-4.8); Lymphocytes % 28.4 %; Mean Corpuscular Hemoglobin 24.6 pg (28.0-34.0); Mean Corpuscular Volume 76.9 fl (81-99); Mean Platelet Volume 11.1 fL (7.4-10.4); Monocytes # 0.4 10^3/uL (0.2-0.9); Monocytes % 6.3 %; Neutrophils # 4.03 10^3/uL (1.8-7.7); Neutrophils % 62.3 %; Nucleated Red Blood Cells % 0 %; Platelet Count 185 10^3/cmm (130-400); Red Blood Count 5.85 10^6/uL (4.1-5.3); Red Cell Distribution Width 14.9 % (12.1-15.1); White Blood Count 6.5 10^3/uL (4.0-10.0)
[2021-10-23 19:14] LABS: Alanine Aminotransferase 12 U/L (0-33); Albumin Level 3.7 g/dL (3.5-5.2); Alkaline Phosphatase 61 IU/L (35-105); Blood Urea Nitrogen 7 mg/dL (6-20); Calcium 9.3 mg/dL (8.5-10.5); Carbon Dioxide 25 mmol/L (22-29); Chloride 100 mmol/L (98-107); Globulin 3.5 g/dL (1.3-4.6); Glomerular Filtration Rate 104.6 mL/min (90-130); Glucose 226 mg/dL (65-115); Osmolality Calculated 285 mOsm/kg (285-295); Sodium 135 mmol/L (136-145); Total Bilirubin 0.4 mg/dL (0.15-1.2); Total Protein 7.2 g/dL (6.6-8.7)
[2021-10-23 19:17] LABS: Anion Gap 14.8 (5-19); Aspartate Amino Transferase 21 U/L (0-32); Potassium 4.8 mmol/L (3.5-5.1)
--- NOTE | 2021-10-23 19:34 | W.ED.SOB ---
HPI - SOB/Dyspnea General: Chief Complaint: Shortness of Breath/Dyspnea Stated Complaint: SOB Time Seen by Provider: 10/23/21 18:21 Source: patient History of Present Illness: HPI Narrative: 51-year-old female presents with shortness of breath, which she developed shortly after taking a new medication. The medication is Caplyta. She has not had this before. She states that has made her tired. But it also has made her short of breath. She is not really experiencing chest discomfort. She notes that her throat feels tight, but her tongue or face is not swollen. She took 2 Benadryl at home with some improvement. She remains short of breath though. She denies fever. She denies leg swelling. MD elicited complaint: shortness of breath Pertinent past history: COPD Onset (ago): hour(s) Context: allergen exposure (Potential) and anxiety Timing: constant Severity: moderate Exacerbating factors: lying flat, exertion and coughing Relieving factors: nothing Known history of: COPD Associated symptoms: Reports extremity pain (Chronic pain in feet) and nausea; Deny abdominal pain, chest congestion, chest pain, fever(s), hemoptysis or vomiting Treatment prior to arrival: other Review of Systems Const: Denies: fever(s) Card: Denies: chest pain Resp: Denies: hemoptysis or chest congestion GI: Reports: nausea; Denies: abdominal pain or vomiting Musc: Reports: extremity pain (Chronic pain in feet) Skin/Breast: Denies: rash or pruritus Psych: Reports: anxiety PFS ED PFSH: Medical History Acute bilateral low back pain Apnea, sleep Bipolar I, most recent episode mixed, severe with psychotic behavior Chronic pain in left foot Chronic post-traumatic stress disorder Essential (primary) hypertension Facet joint disease of lumbosacral region Generalized anxiety disorder intermediate (current) use of opiate analgesic Migraine, unspecified, not intractable, without status migrainosus Neuropathy Other spondylosis with radiculopathy, lumbosacral region Psychiatric care Type 2 diabetes mellitus with diabetic polyneuropathy Surgical History History of bilateral tubal ligation History of laparoscopic appendectomy Hx of cholecystectomy Hx of hysterectomy, total Family History Father CAD (coronary artery disease) Lung disease Bipolar 1 disorder Thyroid disorder Mother Diabetes Lung disease Social History Smoking and tobacco status: former smoker Quit status (tobacco): has quit using tobacco Year quit tobacco: 2011 - 2PPD x 40 Years Former quit date comment: Used non-minerva vape from 2011 Alcohol intake: never Lives independently: Yes Household members: spouse Marital status: Current occupational status: disabled History of recent travel: No Current gender identity: Female Physical Exam Const: GENERAL APPEARANCE: cooperative and lethargic; not ill appearing ORIENTATION/CONSCIOUSNESS: Yes awake, Yes oriented to person, Yes oriented to place, Yes oriented to time and Yes lethargic HENMT: COMMON NORMALS: normocephalic, atraumatic, Normal external nose present and moist oral mucous membranes HEAD & SCALP: normocephalic and atraumatic FACE & SINUS: normal facial exam and face symmetric NOSE: Normal external nose present and Normal nares present MOUTH: Normal oral and palatal mucosa present THROAT: posterior oropharynx normal Eye: COMMON NORMALS: Equal, round and reactive pupils present and EOMs intact bilaterally PUPIL: Yes Equal, round and reactive pupils present Chest: COMMONS NORMALS: normal inspection of the chest Resp: COMMON NORMALS: normal respiratory effort, No use of accessory muscles and clear to auscultation bilaterally AUSCULTATION: clear to auscultation bilaterally Cardio: COMMON NORMALS: regular rhythm RATE: bradycardic RHYTHM: regular rhythm GI: COMMON NORMALS: Normal to inspection, nondistended, normoactive bowel sounds present and Soft to palpation PALPATION: Yes Soft to palpation Extremity: COMMON NORMALS: normal to inspection and no pedal edema Neuro: SENSORIUM/ORIENTATION: Yes oriented to person, Yes oriented to place, Yes oriented to time and Yes lethargic Skin: COMMON NORMALS: no rashes or lesions noted GENERAL SKIN EXAM: no rashes or lesions noted Course Vital Signs: Vital signs: Vital Signs Temperature 98.9 F 10/23/21 18:13 Pulse Rate 62 10/23/21 19:48 Respiratory Rate 18 10/23/21 19:42 Blood Pressure 91/57 10/23/21 18:46 Pulse Oximetry 94 10/23/21 19:42 MDM - SOB/Dyspnea Medical Decision Making 51-year-old female with a history of COPD. She presents with shortness of breath, following a potential exposure to a new medication. She has had reactions like this in the past with other medications. She shows no sign of type I hypersensitivity, meaning no rash, no facial swelling or tongue swelling. Her oxygen saturations are 94 to 95% on her home O2 level. She is bradycardic and not tachycardic. Her chest x-ray shows baseline pulmonary interstitial disease without consolidation, or other acute problem. Her CBC is normal. Her BMP is essentially normal save hyperglycemia. Her EKG shows sinus bradycardia with a first-degree AV block. No acute ST changes. She has received a breathing treatment with some improvement. She is also received IV steroids. She was not given more Benadryl, as she is already mildly lethargic after her home dose. She will be discharged. Lab Data : 10/23/21 18:52 10/23/21 18:52 Labs/Radiology: Radiology Impressions Chest X-Ray 10/23/21 18:33 IMPRESSION: 1. Background interstitial lung disease. 2. No change from prior. 3. No definite acute pulmonary consolidation. Laboratory Results WBC 6.5 10^3/uL (4.0-10.0) 10/23/21 18:52 RBC 5.85 10^6/uL (4.1-5.3) H 10/23/21 18:52 Hgb 14.4 g/dL (11.5-15.3) 10/23/21 18:52 Hct 45.0 % (37.0-47.0) 10/23/21 18:52 MCV 76.9 fl (81-99) L 10/23/21 18:52 MCH 24.6 pg (28.0-34.0) L 10/23/21 18:52 MCHC 32.0 g/dL (30.0-36.0) 10/23/21 18:52 RDW 14.9 % (12.1-15.1) 10/23/21 18:52 Plt Count 185 10^3/cmm (130-400) 10/23/21 18:52 MPV 11.1 fL (7.4-10.4) H 10/23/21 18:52 Neut % (Auto) 62.3 % 10/23/21 18:52 Lymph % (Auto) 28.4 % 10/23/21 18:52 [place] % (Auto) 6.3 % 10/23/21 18:52 Eos % (Auto) 1.9 % 10/23/21 18:52 Baso % (Auto) 0.8 % 10/23/21 18:52 Neut # (Auto) 4.03 10^3/uL (1.8-7.7) 10/23/21 18:52 Lymph # (Auto) 1.8 10^3/uL (0.8-4.8) 10/23/21 18:52 [place] # (Auto) 0.4 10^3/uL (0.2-0.9) 10/23/21 18:52 Eos # (Auto) 0.1 10^3/uL (0.0-0.8) 10/23/21 18:52 Baso # (Auto) 0.1 10^3/uL (0.0-0.1) 10/23/21 18:52 Nucleated RBC % (auto) 0 % 10/23/21 18:52 Nucleated RBCs # 0.0 /100WBC 10/23/21 18:52 Sodium 135 mmol/L (136-145) L 10/23/21 18:52 Potassium 4.8 mmol/L (3.5-5.1) 10/23/21 18:52 Chloride 100 mmol/L (98-107) 10/23/21 18:52 Carbon Dioxide 25 mmol/L (22-29) 10/23/21 18:52 Anion Gap 14.8 (5-19) 10/23/21 18:52 BUN 7 mg/dL (6-20) 10/23/21 18:52 Creatinine 0.6 mg/dL (0.5-0.9) 10/23/21 18:52 GFR Calculation 104.6 mL/min (90-130) 10/23/21 18:52 Glucose 226 mg/dL (65-115) H 10/23/21 18:52 Calculated Osmolality 285 mOsm/kg (285-295) 10/23/21 18:52 Calcium 9.3 mg/dL (8.5-10.5) 10/23/21 18:52 Total Bilirubin 0.4 mg/dL (0.15-1.2) 10/23/21 18:52 AST 21 U/L (0-32) 10/23/21 18:52 ALT 12 U/L (0-33) 10/23/21 18:52 Alkaline Phosphatase 61 IU/L (35-105) 10/23/21 18:52 Total Protein 7.2 g/dL (6.6-8.7) 10/23/21 18:52 Albumin 3.7 g/dL (3.5-5.2) 10/23/21 18:52 Globulin 3.5 g/dL (1.3-4.6) 10/23/21 18:52 Discharge Plan Discharge Patient Disposition: Home Clinical Impression: Medication adverse effect, Acute dyspnea Condition: Stable Prescriptions: New cetirizine 10 mg capsule 10 mg PO DAILY Qty: 10 0RF No Action sumatriptan succinate 25 mg tablet See Rx Instructions PO .COMPLEX 0RF Rx Instructions: take 1 tab at onset of headache; if no relief may repeat 1 tab after at least 2 hrs; max = 4 tabs/24 hr PO omeprazole 20 mg tablet,delayed release (DR/EC) 20 mg PO BID Qty: 60 3RF pregabalin [Lyrica] 300 mg capsule 300 mg PO QDAY 30 Days Qty: 30 1RF promethazine 12.5 mg tablet 12.5 mg PO Q6H PRN (Reason: nausea and vomiting) Qty: 120 2RF Rx Instructions: Take one tablet every six hours as needed for nausea/vomiting Ingrezza 40 mg capsule 40 mg PO DAILY 0RF Hold Instructions: Resume on 10/21/21. galantamine 8 mg tablet 8 mg PO BID Qty: 60 5RF Rx Instructions: administer with AM and PM meals Ajovy Autoinjector 225 mg/1.5 mL auto-injector See Rx Instructions .ROUTE .COMPLEX Qty: 1.5 5RF Dose Instruction: inject 225mg(1.5ML) SUBCUTANEOUSLY ONCE Rx Instructions: inject 225mg(1.5ML) SUBCUTANEOUSLY ONCE albuterol sulfate 5 mg/mL solution for nebulization 5 mg INHALATION TID PRN0RF pravastatin 40 mg tablet 40 mg PO .Q HS 0RF metoprolol tartrate 100 mg tablet 100 mg PO QDAY 0RF albuterol sulfate inhalation 0RF CBD OILS as directed TID 0RF Tresiba FlexTouch U-100 100 unit/mL (3 mL) insulin pen 30 unit SUBCUT .QHS 0RF Ajovy Autoinjector 225 mg/1.5 mL auto-injector SUBCUT 0RF diclofenac sodium-menthol 1.5-10 % combo pack topical QID 0RF galantamine 4 mg tablet 4 mg PO BID 0RF Rx Instructions: administer with AM and PM meals oxycodone 15 mg tablet 15 mg PO Q6H PRN0RF Tresiba FlexTouch U-100 100 unit/mL (3 mL) insulin pen 20 unit SUBCUT DAILY 0RF Baqsimi 3 mg/actuation spray,non-aerosol intranasal 0RF abahgltjzvt-reccplmxn-kgvdfosw [Trelegy Ellipta] 100-62.5-25 mcg blister with device See Rx Instructions .ROUTE .COMPLEX Qty: 60 6RF Dose Instruction: INHALE 1 PUFF BY MOUTH EVERY DAY Rx Instructions: INHALE 1 PUFF BY MOUTH EVERY DAY dronabinol 10 mg capsule 10 mg PO BID 30 Days Qty: 60 1RF Rx Instructions: Fill on or after 07/18/20 and 08/16/20 paliperidone [Invega] 1.5 mg tablet extended release 24hr 1.5 mg PO BEDTIME Qty: 30 2RF Rx Instructions: Take one tablet at bedtime diazepam [Valium] 5 mg tablet 5 mg PO DIRECTED PRN (Reason: anxiety) Qty: 60 2RF Rx Instructions: Take half tab in morning, half tab in afternoon, and one tab in evening as needed for anxiety melatonin 3 mg tablet 3 mg PO DIRECTED PRN (Reason: sleep) Qty: 30 3RF Rx Instructions: Take one tablet 30-60 min prior to bedtime as needed for sleep Discharge Orders: Discharge ED (Routine); Ordered 10/23/21 Ordered By: Alan Neff Referrals: Uzma Oleary DO [Primary Care Provider] - 1-3 days Patient Instructions: Adverse Drug Reaction (ED), Dyspnea (ED) Activity Restrictions/Additional Instructions: Stop the medication you started today. Call your doctor on Tuesday for advice as to what to try next. Use the medication prescribed daily for the next 3 days, then as needed. Use your albuterol breathing treatments at home every 4 hours while awake for the next 48 hours, then as needed. Return for worsening shortness of breath despite treatment, fever greater than 100, chest pain, other concerning symptoms. Coding Level of Care Code ED Production Packager for Chg Fwd Exam Comprehensive
[2021-10-23] MEDS: ipratropium-albuterol 3 mL Neb INHALATION (19:41)
[2021-10-23 19:42] VITALS: PULSE 63; RESP 18; O2SAT 94
[2021-10-23 19:48] VITALS: PULSE 62
== END 2021-10-23 20:28 | disposition home or self-care (01) ==
PROVIDERS: Emergency Provider Emergency Medicine; PCP Family Medicine
DX: R06.02 Shortness of breath (principal); T43.595A Adverse effect of other antipsychotics and neuroleptics, initial encounter; J44.9 Chronic obstructive pulmonary disease, unspecified; J84.9 Interstitial pulmonary disease, unspecified; I44.0 Atrioventricular block, first degree; R00.1 Bradycardia, unspecified; Z87.891 Personal history of nicotine dependence
CPT/HCPCS: 71045; 80053; 85025; 93005; 94640; 96374; 99284; J2930

== ENCOUNTER 2021-11-20 13:49 | Outpatient (CLI) | payer MEDICARE, SELFPAY ==
--- NOTE | 2021-11-20 14:00 | MM_ITS ---
WS: [id number] VIEWS: MLO and CC views both breasts. 3D digital tomosynthesis is also included in this exam. Comparison made with prior exam of 09/09/2008, 04/18/2015,. Findings: There was no sign of mass, architectural distortion or suspicious calcification in either breast. Sc attered fibroglandular densities MM/[place] [id number] Impression: BI-RADS: 2-Benign FOLLOW-UP: 1 Year Follow-up This mammogram was also analyzed by the Computer Aided Detection System R2 Imag e Refractory Tile Helper.
== END 2021-11-20 13:50 | disposition home or self-care (01) ==
PROVIDERS: PCP Family Medicine; Visit Provider Family Medicine
DX: Z12.31 Encounter for screening mammogram for malignant neoplasm of breast (principal)
CPT/HCPCS: 77063; 77067

== ENCOUNTER 2021-12-15 09:46 | Outpatient (CLI) | payer MEDICARE, SELFPAY | END 2021-12-15 09:47 | disposition home or self-care (01) | LOC: RT 09:51 | PROVIDERS: PCP Family Medicine; Visit Provider Internal Medicine Critical Care Medicine | DX: J44.9 Chronic obstructive pulmonary disease, unspecified (principal) | CPT/HCPCS: 94618 ==

== ENCOUNTER → 2022-02-08 14:26 | Outpatient (BNVA) | payer MEDICARE, SELFPAY | PROVIDERS: PCP Family Medicine; Visit Provider Internal Medicine Critical Care Medicine | DX: J44.9 Chronic obstructive pulmonary disease, unspecified (principal); R91.1 Solitary pulmonary nodule; G47.30 Sleep apnea, unspecified; J96.11 Chronic respiratory failure with hypoxia; Z87.891 Personal history of nicotine dependence | CPT/HCPCS: 99214; 99215 ==

== ENCOUNTER 2022-03-12 16:56 | Outpatient (CLI) | payer MEDICARE, SELFPAY ==
--- NOTE | 2022-03-12 17:00 | CTR_ITS ---
PROCEDURE INFORMATION: Exam: CT Chest Without Contrast; Diagnostic Exam date and time: 03/12/2022 5:21 PM Age: 51 years old Clinical indication: Condition or disease; Lung condition and disease; Copd; Complications not specified; Patient HX: HX histoplasmosis; Additional info: Pulmonary nodule TECHNIQUE: Imaging protocol: Diagnostic computed tomography of the chest without contrast. Radiation optimization: All CT scans at this facility use at least one of these dose optimization techniques: automated exposure control; mA and/or kV adjustment per patient size (includes targeted exams where dose is matched to clinical indication); or iterative reconstruction. COMPARISON: CT chest wo con [id number] 04/01/2021 1:08 PM RADIATION DOSE METRICS: Total DLP (mGy-cm): 619.71 FINDINGS: Lungs: Prominent emphysematous disease, most significant in the left upper lobe. Bilateral bullous changes noted. Peripheral pulmonary scarring noted. 5 mm solid nodule in the lateral segment of the right middle lobe (series 4, image 37), slightly enlarged compared to prior exam when it measured up to approximately 3 mm. Calcified granulomas noted. Previously noted consolidation in the lateral basal segment of the right lower lobe not present on today's exam, likely consistent with atelectasis on prior exam. Pleural spaces: No pleural effusion. No pneumothorax. Heart: Coronary artery calcifications noted. Lymph nodes: Calcified mediastinal lymph nodes identified. Vasculature: Unremarkable. No aortic aneurysm. Gallbladder and bile ducts: The gallbladder is surgically absent. Bones/joints: Unremarkable. Soft tissues: 1.3 cm soft tissue nodule beneath the skin surface overlying the lateral left upper arm, similar to prior exam possibly a sebaceous cyst. CT/CT chest wo con [id number] IMPRESSION: 1. Emphysematous disease. 2. Previously noted consolidation in the lateral basal segment of the right lower lobe not present on today's exam, likely consistent with atelectasis on prior exam. 3. 5 mm solid nodule in the right middle lobe slightly increased in size compared to prior exam. For patients at high risk (history of smoking or of other known risk factors), consider optional CT Chest at 12 months. (Reference: Simon) REFERENCES: iSmon Baltazar, et al. Guidelines for Management of Incidental Pulmonary Nodules Detected on CT Images: From the Fleischner Society 2017. Radiology. 2017;284(1):228-243.
== END 2022-03-12 16:57 | disposition home or self-care (01) ==
LOC: RAD 16:59
PROVIDERS: PCP Family Medicine; Visit Provider Internal Medicine Critical Care Medicine
DX: J43.9 Emphysema, unspecified (principal); R91.1 Solitary pulmonary nodule
CPT/HCPCS: 71250

== ENCOUNTER 2022-03-31 07:32 | Outpatient (CLI) | payer MEDICARE, SELFPAY ==
--- NOTE | 2022-03-31 13:13 | PFTS_ITS ---
Date of Study:03/31/22 Date of Dictation: MECHANICS: Forced vital capacity (FVC) is reduced. Forced expiratory volume in one second (FEV1) is reduced. FEV1/FVC is reduced. FLOW VOLUME LOOP: Reduced flow at all lung volumes with scooping. LUNG VOLUMES: Total lung capacity (TLC) is mildly reduced. Residual volume (RV) is normal. DIFFUSING CAPACITY FOR CARBON MONOXIDE: Severely reduced. INTERPRETATION: The prebronchodilator spirometry is consistent with moderate airflow obstruction. The postbronchodilator spirometry is consistent with severe airflow obstruction likely secondary to paradoxical bronchospasm. Lung volumes are consistent with minimal restriction. Gas exchange (DLCO) is severely reduced which is disproportionate to spirometry. MTDD
== END 2022-03-31 07:33 | disposition home or self-care (01) ==
PROVIDERS: PCP Family Medicine; Visit Provider Internal Medicine Critical Care Medicine
DX: R06.00 Dyspnea, unspecified (principal); R06.2 Wheezing; F17.200 Nicotine dependence, unspecified, uncomplicated
CPT/HCPCS: 94060; 94726; 94729; J7611

== ENCOUNTER → 2022-04-07 12:55 | Outpatient (BNVA) | payer MEDICARE, SELFPAY | PROVIDERS: PCP Family Medicine; Visit Provider Specialist | DX: G31.84 Mild cognitive impairment of uncertain or unknown etiology (principal); G43.711 Chronic migraine without aura, intractable, with status migrainosus; G62.9 Polyneuropathy, unspecified | CPT/HCPCS: 99213 ==

== ENCOUNTER → 2023-04-06 13:15 | Outpatient (BNVA) | payer MEDICARE, SELFPAY | PROVIDERS: PCP Family Medicine; Visit Provider Specialist | DX: R29.90 Unspecified symptoms and signs involving the nervous system (principal); G31.84 Mild cognitive impairment of uncertain or unknown etiology; G43.711 Chronic migraine without aura, intractable, with status migrainosus; F41.1 Generalized anxiety disorder; G62.9 Polyneuropathy, unspecified | CPT/HCPCS: 99214 ==

== ENCOUNTER → 2023-11-25 10:27 | Outpatient (BNVA) | payer MEDICARE, SELFPAY | PROVIDERS: PCP Family Medicine; Visit Provider Podiatrist Foot & Ankle Surgery | DX: E11.42 Type 2 diabetes mellitus with diabetic polyneuropathy; G62.9 Polyneuropathy, unspecified; M21.622 Bunionette of left foot; Z79.4 Long term (current) use of insulin; Z79.84 Long term (current) use of oral hypoglycemic drugs | CPT/HCPCS: 73630; 99203 ==

== ENCOUNTER 2024-01-17 10:58 | Outpatient (CLI) | payer MEDICARE, SELFPAY ==
--- NOTE | 2024-01-17 11:02 | PETR_ITS ---
PROCEDURE INFORMATION: Exam: PET/CT Skull Base to Mid-thigh Exam date and time: 01/17/2024 11:56 AM Age: 53 years old Clinical indication: Abnormal findings; 3. 5 mm solid nodule in the right middle lobe slightly increased in size compared to prior exam; Additional info: Pulmonary nodule LABS AND CLINICAL REPORTS: Glucose: 113 mg/dl Treatment strategy for malignancy (PET staging): Initial Staging (PI) TECHNIQUE: Imaging protocol: Following at least four-hour fasting and following the injection of radiopharmaceutical, low dose CT images were obtained. Then, PET images were obtained. Attenuation corrected images were constructed using the CT scan. Fused images of PET and CT were reviewed. The standardized uptake values (SUV) reported below are maximum values within a region of interest, expressed in gm/ml. Exam includes orbital meatal line to mid-thigh. Radiopharmaceutical: 14.67 mCi F-18 FDG (Fluorodeoxyglucose), IV. Time of imaging post radiopharmaceutical administration: 1 hour Injection site: left AC COMPARISON: CT chest wo con [id number] 03/12/2022 5:21 PM FINDINGS: Brain: Visualized brain has normal physiologic uptake. Pharynx: No abnormal uptake. Larynx: No abnormal uptake. Lungs, pleura and trachea: Emphysematous changes in the lungs. A 5 mm right middle lobe pulmonary nodule does not have definite increased FDG uptake, though may be below PET resolution. Similar subpleural reticulation predominantly in the right lung. Heart: Normal physiologic uptake. Mediastinal space: No abnormal uptake. Liver: No abnormal uptake. Gallbladder and biliary ducts: Cholecystectomy. Pancreas: No abnormal uptake. Spleen: No abnormal uptake. Adrenal glands: No abnormal uptake. Kidneys and ureters: Normal physiologic uptake. Stomach and bowel: No abnormal uptake. Reproductive: Hysterectomy. Vasculature: No abnormal uptake. Lymph nodes: No abnormal uptake. No lymphadenopathy in the head, neck, chest, abdomen, pelvis, and extremities. Skeleton: No abnormal uptake in the visualized axial and appendicular skeleton. Soft tissues: No abnormal uptake in the visualized head, neck, chest, abdomen, pelvis, and extremities. PET/PET skull to thigh INIT [id number] IMPRESSION: No FDG avid disease identified. A 5 mm right middle lobe pulmonary nodule does not have definite increased FDG uptake, though may be below PET resolution.
== END 2024-01-17 10:59 | disposition home or self-care (01) ==
PROVIDERS: PCP Family Medicine; Visit Provider Nurse Practitioner Family
DX: R91.1 Solitary pulmonary nodule (principal); Z98.890 Other specified postprocedural states
CPT/HCPCS: 78815; A9552

== ENCOUNTER → 2024-04-04 13:07 | Outpatient (BNVA) | payer MEDICARE, SELFPAY | PROVIDERS: PCP Family Medicine; Visit Provider Specialist | DX: R29.90 Unspecified symptoms and signs involving the nervous system (principal); G31.84 Mild cognitive impairment of uncertain or unknown etiology; G43.711 Chronic migraine without aura, intractable, with status migrainosus; F41.1 Generalized anxiety disorder; G62.9 Polyneuropathy, unspecified | CPT/HCPCS: 99214 ==

== ENCOUNTER → 2024-06-25 15:10 | Outpatient (BNVA) | payer MEDICARE, SELFPAY | PROVIDERS: PCP Family Medicine; Visit Provider Podiatrist Foot & Ankle Surgery | DX: G62.9 Polyneuropathy, unspecified; M21.622 Bunionette of left foot; E11.42 Type 2 diabetes mellitus with diabetic polyneuropathy; Z79.4 Long term (current) use of insulin; Z79.84 Long term (current) use of oral hypoglycemic drugs | CPT/HCPCS: 99213 ==

== ENCOUNTER → 2024-09-17 11:49 | Outpatient (BNVA) | payer MEDICARE, SELFPAY | PROVIDERS: PCP Family Medicine; Visit Provider Specialist | DX: R29.90 Unspecified symptoms and signs involving the nervous system (principal); G31.84 Mild cognitive impairment of uncertain or unknown etiology; G43.711 Chronic migraine without aura, intractable, with status migrainosus; F41.1 Generalized anxiety disorder; G62.9 Polyneuropathy, unspecified; G60.9 Hereditary and idiopathic neuropathy, unspecified | CPT/HCPCS: 99213 ==

== ENCOUNTER → 2025-05-07 08:28 | Outpatient (BNVA) | payer MEDICARE, SELFPAY | PROVIDERS: Visit Provider Podiatrist Foot & Ankle Surgery | DX: E11.8 Type 2 diabetes mellitus with unspecified complications (principal); G62.9 Polyneuropathy, unspecified; M76.61 Achilles tendinitis, right leg; E11.42 Type 2 diabetes mellitus with diabetic polyneuropathy; M84.371A Stress fracture, right ankle, initial encounter for fracture; Z79.84 Long term (current) use of oral hypoglycemic drugs; Z79.4 Long term (current) use of insulin; Z46.89 Encounter for fitting and adjustment of other specified devices; M84.374D Stress fracture, right foot, subsequent encounter for fracture with routine healing | CPT/HCPCS: 99214 ==

== ENCOUNTER 2025-05-07 13:38 | Outpatient (CLI) | payer MEDICARE, SELFPAY | END 2025-05-07 13:39 | disposition home or self-care (01) | LOC: SPT 13:39 | PROVIDERS: Visit Provider Podiatrist Foot & Ankle Surgery | DX: Z46.89 Encounter for fitting and adjustment of other specified devices (principal); M84.374D Stress fracture, right foot, subsequent encounter for fracture with routine healing | CPT/HCPCS: L4361 ==

== ENCOUNTER 2025-06-05 13:00 | Outpatient (CLI) | payer MEDICARE, SELFPAY ==
--- NOTE | 2025-06-05 13:00 | MRR_ITS ---
PROCEDURE INFORMATION: Exam: MR Right Lower Extremity Joint Without Contrast; Ankle Exam date and time: 06/05/2025 1:21 PM Age: 55 years old Clinical indication: Right; RT ankle pain- heel spur. ; Additional info: Stress fracture, right ankle, bill magnet with 2 mm slices TECHNIQUE: Imaging protocol: Magnetic resonance imaging of the right lower extremity without contrast. Exam focused on the ankle. COMPARISON: No relevant prior studies available. FINDINGS: Bones/joints: No fractures. No bone marrow edema. Heterogeneous mildly lobulated. Impression central endosteal lesion in the distal tibia consistent with enchondroma. LIGAMENTS: Distal tibiofibular syndesmosis: Unremarkable. No tear. Anterior talofibular ligament: Unremarkable. No tear. Posterior talofibular ligament: Unremarkable. No tear. Calcaneofibular ligament: Unremarkable. No tear. Deltoid ligament complex: Unremarkable. No tear. TENDONS: Flexor tendons of foot: Unremarkable as visualized. Tibialis posterior tendon: Unremarkable as visualized. Peroneal tendons: Unremarkable as visualized. Extensor tendons of foot: Unremarkable as visualized. Tibialis anterior tendon: Unremarkable as visualized. Achilles tendon: Unremarkable as visualized. Tarsal canal (Sinus tarsi): Unremarkable. Normal signal of the fat. Tarsal tunnel: Unremarkable. Soft tissues: Unremarkable. Plantar fascia: Plantar fascia is unremarkable. MR/MR ankle RT wo con* [id number] IMPRESSION: 1. No acute findings. 2. 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
== END 2025-06-05 13:01 | disposition home or self-care (01) ==
LOC: RAD 13:01
PROVIDERS: PCP Family Medicine; Visit Provider Podiatrist Foot & Ankle Surgery
DX: M84.371A Stress fracture, right ankle, initial encounter for fracture (principal)
CPT/HCPCS: 73721

== ENCOUNTER → 2025-06-25 13:40 | Outpatient (BNVA) | payer MEDICARE, SELFPAY | PROVIDERS: PCP Family Medicine; Visit Provider Podiatrist Foot & Ankle Surgery | DX: E11.8 Type 2 diabetes mellitus with unspecified complications (principal); G62.9 Polyneuropathy, unspecified; M76.61 Achilles tendinitis, right leg; M72.2 Plantar fascial fibromatosis; E11.42 Type 2 diabetes mellitus with diabetic polyneuropathy; Z79.4 Long term (current) use of insulin; Z79.84 Long term (current) use of oral hypoglycemic drugs | CPT/HCPCS: 99213 ==